=== PATIENT | male | born 1940 | race Caucasian/White ===

== ENCOUNTER 2023-08-16 18:09 | Inpatient (IN) ==
[2023-08-16 20:53] LABS: ABS Basophils 0.1 10^3/uL (0.0-0.1); ABS Lymphocytes 1.1 10^3/uL (1.0-4.8); ABS Monocytes 1.1 10^3/uL (0.0-1.1); Hematocrit 35.9 % (38-53); Lymphocyte % 6.6 %; Mean Corpuscular Hemoglobin 31.1 pg (27-33); Mean Corpuscular Hgb Conc 33.4 g/dL (31-36); Mean Platelet Volume 8.6 fL (7.5-11.2); Platelet Count 232 10^3/uL (150-450); Red Blood Count 3.86 10^6/uL (4.06-5.63); Red Cell Distribution Width 14.7 % (12-17); White Blood Count 17.3 10^3/uL (3.6-10.2)
[2023-08-16 21:38] LABS: Calcium 9.3 mg/dL (8.6-10.3); Creatinine, Serum 2.11 mg/dL (0.67-1.17); Potassium 4.6 mmol/L (3.5-5.0); eGFR CKD-EPI 30.1 (>60)
[2023-08-16 21:41] LABS: Albumin 3.6 g/dL (3.2-5.2); Albumin/Globulin Ratio 1.4 (1-3); Globulin 2.6 g/dL (2-4); Total Bilirubin 0.9 mg/dL (0.2-1.0); Total Protein 6.2 g/dL (6.4-8.9)
[2023-08-16 22:08] LABS: High Sensitivity Troponin 1 Hr 163 pg/mL (<20)
[2023-08-16] MEDS: Enoxaparin 30 MG/0.3 ML SYR SUBCUT SCH (23:35)
[2023-08-17 05:57] LABS: ABS Basophils 0.1 10^3/uL (0.0-0.1); ABS Lymphocytes 1.1 10^3/uL (1.0-4.8); ABS Monocytes 1.3 10^3/uL (0.0-1.1); ABS Neutrophils 13.4 10^3/uL (1.5-7.6); ABS Nucleated RBC 0.01 10^3/ul; Eosinophil % 0.2 %; Hematocrit 33.2 % (38-53); Hemoglobin 11.2 g/dL (13.2-16.3); Lymphocyte % 6.7 %; Mean Corpuscular Hemoglobin 31.2 pg (27-33); Mean Corpuscular Hgb Conc 33.8 g/dL (31-36); Mean Corpuscular Volume 92.4 fL (80-97); Mean Platelet Volume 8.8 fL (7.5-11.2); Nucleated Red Blood Cells % 0.1 %/100WBC (0.0-0.8); Platelet Count 218 10^3/uL (150-450); Red Blood Count 3.59 10^6/uL (4.06-5.63); Red Cell Distribution Width 14.5 % (12-17); White Blood Count 15.9 10^3/uL (3.6-10.2)
[2023-08-17 06:37] LABS: Albumin 3.3 g/dL (3.2-5.2); Albumin/Globulin Ratio 1.3 (1-3); Calcium 8.8 mg/dL (8.6-10.3); Globulin 2.5 g/dL (2-4); Magnesium 1.7 mg/dL (1.9-2.7); Potassium 4.1 mmol/L (3.5-5.0); Total Bilirubin 0.9 mg/dL (0.2-1.0); Total Protein 5.8 g/dL (6.4-8.9); eGFR CKD-EPI 32.1 (>60)
[2023-08-17] MEDS: Magnesium Sulfate 2 gm BAG 2 GM/50 ML BAG IVPB ONE (07:46)
[2023-08-17] MEDS: cefTRIAXone 1 gm/50 mL D5W 1 GM/50 ML BAG IV SCH (09:13)
[2023-08-17] MEDS: NS 0.9% 1000 ml BAG 1,000 ML IV ONE (10:15)
[2023-08-17] MEDS: NS 0.9% 1000 ml BAG 1,000 ML IV SCH (12:08)
[2023-08-17 14:00] LABS: High Sens Troponin Baseline 79 pg/mL (<20); High Sensitivity Troponin 3 Hr 79 pg/mL (<20)
[2023-08-17 14:29] LABS: Creatine Kinase 1837 U/L (10-223)
[2023-08-17 14:47] LABS: Urine Appearance Extra Turbid; Urine Bilirubin Negative (Negative); Urine Blood 3+ (Negative); Urine Glucose Negative (Negative); Urine Ketones Trace (Negative); Urine Nitrite Negative (Negative); Urine Protein 1+ (>=30 mg/dL) (Negative); Urine Specific Gravity 1.011 (1.002-1.030); Urine Urobilinogen Negative (Negative); Urine pH 5.5 (5.0-8.0)
[2023-08-17 15:06] LABS: High Sensitivity Troponin 1 Hr 74 pg/mL (<20)
[2023-08-17 15:22] LABS: Urine Bacteria 1+ /HPF (Absent); Urine Red Blood Cell 3+(>10/hpf) /HPF (0-Trace); Urine Squamous Epithelial Cell Present /HPF (Absent); Urine White Blood Cell 3+(>20/hpf) /HPF (0-Trace)
[2023-08-17 17:07] LABS: Urine Color Yellow
[2023-08-17 17:18] LABS: High Sensitivity Troponin 3 Hr 67 pg/mL (<20)
[2023-08-17] MEDS: Lactated Ringers 1000 ml BAG 1,000 ML IV SCH (17:26)
[2023-08-18 05:46] LABS: ABS Basophils 0.1 10^3/uL (0.0-0.1); ABS Eosinophils 0.1 10^3/uL (0.0-0.5); ABS Lymphocytes 1.5 10^3/uL (1.0-4.8); ABS Monocytes 1.1 10^3/uL (0.0-1.1); Eosinophil % 1.1 %; Hematocrit 31.1 % (38-53); Hemoglobin 10.4 g/dL (13.2-16.3); Lymphocyte % 12.8 %; Mean Corpuscular Hemoglobin 30.8 pg (27-33); Mean Corpuscular Hgb Conc 33.3 g/dL (31-36); Mean Corpuscular Volume 92.6 fL (80-97); Mean Platelet Volume 8.5 fL (7.5-11.2); Platelet Count 195 10^3/uL (150-450); Red Blood Count 3.36 10^6/uL (4.06-5.63); Red Cell Distribution Width 14.4 % (12-17); White Blood Count 11.9 10^3/uL (3.6-10.2)
[2023-08-18 06:31] LABS: Calcium 8.3 mg/dL (8.6-10.3); Creatinine, Serum 1.6 mg/dL (0.67-1.17); Magnesium 1.7 mg/dL (1.9-2.7)
[2023-08-18] MEDS: Magnesium Sulfate 2 gm BAG 2 GM/50 ML BAG IVPB ONE (08:57)
[2023-08-18] MEDS: cefTRIAXone 1 gm/50 mL D5W 1 GM/50 ML BAG IV SCH (08:57)
[2023-08-18] MEDS: Lactated Ringers 1000 ml BAG 1,000 ML IV ONE (10:58)
[2023-08-18] MEDS: Lactated Ringers 1000 ml BAG 1,000 ML IV SCH (12:09)
[2023-08-19 09:52] LABS: ABS Basophils 0.1 10^3/uL (0.0-0.1); ABS Eosinophils 0.2 10^3/uL (0.0-0.5); ABS Lymphocytes 1.1 10^3/uL (1.0-4.8); ABS Monocytes 0.9 10^3/uL (0.0-1.1); ABS Neutrophils 7.4 10^3/uL (1.5-7.6); Eosinophil % 1.8 %; Hematocrit 33.7 % (38-53); Hemoglobin 10.8 g/dL (13.2-16.3); Lymphocyte % 11.7 %; Mean Corpuscular Hemoglobin 30.5 pg (27-33); Mean Corpuscular Hgb Conc 32.1 g/dL (31-36); Mean Platelet Volume 8.2 fL (7.5-11.2); Platelet Count 228 10^3/uL (150-450); Red Blood Count 3.54 10^6/uL (4.06-5.63); Red Cell Distribution Width 14.6 % (12-17); White Blood Count 9.7 10^3/uL (3.6-10.2)
[2023-08-19 10:32] LABS: Calcium 8.4 mg/dL (8.6-10.3); Creatinine, Serum 1.45 mg/dL (0.67-1.17); Potassium 4.1 mmol/L (3.5-5.0); eGFR CKD-EPI 47.2 (>60)
[2023-08-19 15:40] LABS: Ferritin 182.7 ng/mL (24-336)
[2023-08-19 15:43] LABS: Folate 19.42 ng/mL (5.90-24.80)
[2023-08-19] MEDS: Ferric Gluconate IV 250 MG in NS 0.9% 250 ml 200 ML IVPB SCH (20:35)
[2023-08-20 07:27] LABS: ABS Basophils 0.1 10^3/uL (0.0-0.1); ABS Eosinophils 0.3 10^3/uL (0.0-0.5); ABS Lymphocytes 1.1 10^3/uL (1.0-4.8); ABS Monocytes 1.2 10^3/uL (0.0-1.1); ABS Neutrophils 7.3 10^3/uL (1.5-7.6); Eosinophil % 2.7 %; Hematocrit 31.2 % (38-53); Hemoglobin 10.6 g/dL (13.2-16.3); Lymphocyte % 11.1 %; Mean Corpuscular Hemoglobin 31.3 pg (27-33); Mean Corpuscular Volume 92.1 fL (80-97); Mean Platelet Volume 8.4 fL (7.5-11.2); Platelet Count 220 10^3/uL (150-450); Red Blood Count 3.39 10^6/uL (4.06-5.63); Red Cell Distribution Width 14.3 % (12-17); White Blood Count 9.9 10^3/uL (3.6-10.2)
[2023-08-20 07:43] LABS: Calcium 8.4 mg/dL (8.6-10.3); Creatinine, Serum 1.37 mg/dL (0.67-1.17); Magnesium 1.5 mg/dL (1.9-2.7); Potassium 4.3 mmol/L (3.5-5.0); eGFR CKD-EPI 50.6 (>60)
[2023-08-20] MEDS: Magnesium Sulf 4 GM/100 ML IV 4,000 MG/100 ML BAG IVPB ONE (11:12)
[2023-08-21 06:44] LABS: ABS Basophils 0.1 10^3/uL (0.0-0.1); ABS Eosinophils 0.4 10^3/uL (0.0-0.5); ABS Lymphocytes 1.6 10^3/uL (1.0-4.8); ABS Monocytes 1.2 10^3/uL (0.0-1.1); ABS Neutrophils 6.2 10^3/uL (1.5-7.6); Eosinophil % 4.6 %; Hematocrit 28.6 % (38-53); Hemoglobin 9.8 g/dL (13.2-16.3); Lymphocyte % 17.2 %; Mean Corpuscular Hemoglobin 31.4 pg (27-33); Mean Corpuscular Hgb Conc 34.2 g/dL (31-36); Mean Corpuscular Volume 91.8 fL (80-97); Mean Platelet Volume 8.2 fL (7.5-11.2); Platelet Count 230 10^3/uL (150-450); Red Blood Count 3.12 10^6/uL (4.06-5.63); Red Cell Distribution Width 14.4 % (12-17); White Blood Count 9.5 10^3/uL (3.6-10.2)
[2023-08-21 07:46] LABS: Calcium 8.4 mg/dL (8.6-10.3); Creatinine, Serum 1.51 mg/dL (0.67-1.17); Magnesium 2.2 mg/dL (1.9-2.7); Potassium 4.3 mmol/L (3.5-5.0)
[2023-08-22 12:52] LABS: Rapid COVID-19 Molecular Undetected (Undetected)
[2023-08-22 13:32] VITALS: BP 110/62
== END 2023-08-22 14:40 | disposition swing bed (61) | DRG 872 ==
LOC: EDHOLD 18:09 → ED 18:09 → SUATTDRO 19:58 → MED 08-17 15:29 → SUATTDRO 08-18 10:43
PROVIDERS: ADMIT Student in an Organized Health Care Education/Training Program; ATTEND Internal Medicine

== ENCOUNTER 2024-03-26 10:32 | Observation (INO) ==
[~2024-03-26 10:32] MED LIST: Metoclopramide 5 MG/ML VIAL (10 mg) IV PRN; NS 0.45% 1000 ml BAG 1,000 ML IV SCH; Naloxone 0.4 mg VIAL 0.4 mg/ml 1 ml VIAL IV PRN; Ondansetron 4 mg VIAL 2 MG/ML 2 ml VIAL IV PRN; fentaNYL 100 mcg/2 ml 50 MCG/ML VIAL IV PRN
[2024-03-26] MEDS ORDERED: fentaNYL 250 mcg/5 ml 50 MCG/ML 5 ml VIAL (250 MCG) ONE (11:37)
[2024-03-26] MEDS: Gentamicin ADULT 365 MG in NS 0.9% 100 ml BAG 100 ML IVPB ONE (11:55)
[2024-03-26 12:03] LABS: Rapid COVID-19 Molecular Undetected (Undetected)
[2024-03-26] MEDS ORDERED: Ondansetron 4 mg VIAL 2 MG/ML 2 ml VIAL IV PRN (12:48)
[2024-03-26] MEDS ORDERED: Dexamethasone IV 4 MG/ML VIAL 1 ml VIAL ONE (13:14)
[2024-03-26] MEDS ORDERED: Ondansetron 4 mg VIAL 2 MG/ML 2 ml VIAL ONE (13:14)
[2024-03-26] MEDS: Ampicillin ADVAN 2 GM in NS 0.9% 100 ML 100 ML IVPB ONE (18:06)
[2024-03-26] MEDS: NS 0.9% 1000 ml BAG 1,000 ML IV SCH (18:28)
[2024-03-26] MEDS: Neomycin/Polym/Bacit TOP OINT 15 GM TOPICAL SCH (18:33)
[2024-03-26] MEDS: Lactated Ringers 1000 ml BAG 1,000 ML IV SCH (18:34)
[2024-03-26] MEDS: Acetaminophen IV 1 GM/100ML 1,000 MG/100 ML BAG IV ONE (18:37)
[2024-03-26] MEDS: Scopolamine 1 mg/72hr PATCH TRANSDERM ONE (18:37)
[2024-03-26] MEDS: Buffered Lidocaine 1% SYRIN 1 ml INTRADERM ONE (18:37)
[2024-03-26] MEDS: Magnesium Hydroxide LIQ 30 ML UDC PO SCH (20:56)
[2024-03-27 14:14] VITALS: BP 106/62
== END 2024-03-27 15:00 | disposition home or self-care (01) ==
LOC: OR 10:32 → SSU 10:32
PROVIDERS: ADMIT Urology; ATTEND Urology